=== PATIENT | female | born 1980 | race Two or more races ===

== ENCOUNTER → 2024-06-18 | Outpatient (CLI) | payer MEDICAID, SELFPAY ==
--- NOTE | 2024-06-18 12:47 | XR_ITS ---
Examination: Bilateral AP knees standing single view Standing right lateral knee left lateral knee 2 views TECHNIQUE: Bilateral AP knees standing single view Standing right lateral knee left lateral knee 2 views total 3 views Standing time: June 18, 2024 1404 hours INDICATIONS: Bilateral knee pain beginning 2 months ago. FINDINGS: Bilateral mild tricompartment osteoarthritis No fractures No dislocations IMPRESSION: Mild bilateral tricompartment osteoarthritis
== END | disposition home or self-care (01) ==
PROVIDERS: PCP Specialist; Referring Provider Specialist; Visit Provider Specialist
DX: M17.0 Bilateral primary osteoarthritis of knee (principal)
CPT/HCPCS: 73560